=== PATIENT | female | born 2000 | race Caucasian/White ===

== ENCOUNTER 2024-09-29 09:30 | Outpatient (RCR) | payer BC, SELFPAY ==
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
--- NOTE | 2024-09-29 10:10 | BH.SGPN.GN ---
Behaviors/Verbalizations/Mental Status: [] Eye contact is good. Motor activity is appropriate. Appearance is casual. Speech is Appropriate. Mood is anxious. Affect is congruent. Thoughts are linear and logical. No evidence of psychosis. Client Response/Progress/Benefit: [] Pt responded well to session AEB actively participating throughout group. Pt was attentive throughout group activity discussing famous individuals and how they overcame failure to be successful. Pt helped group define fear of failure as well as how it can impact mental health and relationships. Participated in experiential activity and worked with group members to problem solve. Appeared to benefit from increased knowledge of what causes fear of failure and how it impacts people. Will continue IOP tx to prevent decompensation, improve distress tolerance, and challenge distortions.
--- NOTE | 2024-09-29 11:10 | BH.SGPN.GN ---
Behaviors/Verbalizations/Mental Status: []Pt alert and oriented, neatly dressed and groomed. Eye contact good. Motor activity appropriate. Speech within normal limits. Affect congruent, mood anxious. Thoughts linear, logical, no signs of hallucinations or delusions. Client Response/Progress/Benefit: [] Pt responded well to session, engaged in the experiential activity and attentive throughout group processing. Pt reported fear of failure has kept Pt from ?stepping up in my job? and seeking help for her mental health. Pt completed fear of failure worksheet and was able to identify thoughts and behaviors that reinforce personal fear of failure including unsupportive people, self-sabotaging behaviors, and not asking for help. Pt participated in small group discussion regarding strategies to overcome fear of failure. Identified wanting to work on utilizing accepting ups and downs and combatting negative thoughts. Appeared to benefit from increased knowledge of strategies to combat fear of failure and gaining self-awareness. Pt will continue IOP tx to prevent decompensation, improve daily functioning, and gain healthy coping skills. ? Narrative Note: []
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
--- NOTE | 2024-10-01 09:42 | BH.DR.ITP ---
Initial Treatment Plan Patient Information Visit Information: ADMISSION DATE: EXPECTED LOS: 4-6 weeks Problems/Symptoms Problem #1:: depression Symptom:: sadness,self harm, changes in sleep, loss of kalen Problem #2:: Generalized Anxiety Disorder Symptom:: panic attacks, worry, rumination
[2024-10-01 10:13] VITALS: BP 134/87; PULSE 69
--- NOTE | 2024-10-01 10:15 | BH.SGPN.GN ---
Behaviors/Verbalizations/Mental Status: [] Client alert and oriented, casual appearance. Eye contact good. Motor activity appropriate. Speech within normal limits. Affect congruent, mood euthymic. Thoughts linear, logical, no signs of hallucinations or delusions. Client Response/Progress/Benefit: []Client responded well to session AEB listening attentively to peers, taking notes, and engaging in discussions. Client attentive to psychoeducation about different styles of decision making. Client engaged in discussion about internal and external influences that impact decision making. Group identified internal influences that impact decision making to include self-talk, anxiety, mood, and past experiences. Group identified external influences that impact decision making to include opinions from others, peer pressure, societal or cultural norms, and finances. Client seemed to benefit from increased awareness and understanding of different decision making styles. Plan is for client to continue IOP to improve healthy coping, challenge distortions, and prevent decompensation.
--- NOTE | 2024-10-01 14:36 | BH.MDN ---
Multi-Disciplinary Note Note 45-min Individual: Time Started:: 11:10 Date: 10/01/24 Purpose of session/treatment goals addressed:: Purpose of session was to address goals 1 and 2 from MTP. Eye Contact:: Fair Motor Activity:: Appropriate Appearance:: Casual Speech:: Appropriate Mood:: Anxious and Depressed Affect:: Constricted Thoughts:: Linear, Logical and No evidence of hallucinations/delusions noted Staff Interventions:: psychoeducation on: (cognitive triangle and behavior activation), CBT techniques, rapport building, strengths perspective, goal setting (created weekly task list) and taught coping skills Client Response:: Client reported she is seeking treatment after being recommended by a friend at work. Client shared she has struggled with depression for most of my life. Client reported her parents often dismissed her feelings of depression and do not believe in mental health. Client reported Time Stopped:: 12:00
--- NOTE | 2024-10-05 09:05 | BH.SGPN.GN ---
Behaviors/Verbalizations/Mental Status: [] ?Eye contact is good. Motor activity is appropriate. Appearance is casual. Speech is Appropriate. Mood is depressed. Affect is congruent. Thoughts are linear and logical. No evidence of psychosis. Reviewed daily check in sheet and no reports of suicidal ideations or intent. Client Response/Progress/Benefit: [] ?Pt was an active participant in group discussions. Attentive. Did well to identify 2 mental health wins including managing to get here today despite a mix up with work. Additional win noted as making plans to go read at a coffee shop this afternoon so she is not isolated. Stressor noted as ongoing struggles with her mental health. Benefited from group support, encouragement, and feedback. Will continue in IOP to prevent decompensation, promote mood stability, and increase healthy coping consistency. Narrative Note: []
--- NOTE | 2024-10-05 10:10 | BH.SGPN.GN ---
Behaviors/Verbalizations/Mental Status: [] Eye contact is good. Motor activity is appropriate. Appearance is casual. Speech is Appropriate. Mood is dysthymic. Affect is congruent. Thoughts are linear and logical. No evidence of psychosis. Client Response/Progress/Benefit: [] Pt participated at times during group discussions and interactions. Attentive during psychoeducation on automatic negative thoughts (ANTS) and cognitive distortions. This group was very psychoeducation heavy. Pt did participated during interactive discussions in which peers defined and gave examples of ANTS. Participated during interactive discussion on definition of cognitive distortions and examples related to the 10 cognitive distortions presented. Client stated top three distortions she uses are magnification, personalization, and jumping to conclusions.. Benefited from increased insight and awareness of cognitive distortions and their impact on emotions and behaviors. Will continue in IOP to improve boundary setting, increase healthy coping, and prevent decompensation.
--- NOTE | 2024-10-05 15:05 | BH.MDN ---
Multi-Disciplinary Note Note 45-min Individual: Time Started:: 11:10 Date: 10/05/24 Purpose of session/treatment goals addressed:: Purpose of session was to address goals 1 and 2 from MTP. Eye Contact:: Fair Motor Activity:: Appropriate Appearance:: Casual Speech:: Appropriate Mood:: Anxious and Dysthymic Affect:: Congruent Thoughts:: Linear, Logical and No evidence of hallucinations/delusions noted Staff Interventions:: thought challenging, CBT techniques, rapport building, strengths perspective, goal setting and taught coping skills Client Response:: Client said she completed homework of engaging in behavior activation by reading and completing chores and tasks around the house. Client noted she did have some external motivation to clean because she was supposed to have a friend over to hang out. Client noted she was able to see positive impact of allowing herself time to read and was able to engage in her book. Client reported she chose to use her intermittent FMLA today by calling off work because she was struggling more with negative thought patterns and hopelessness last night. Client shared yesterday while she was at work she had negative interaction with a coworker and this led to negative thoughts spiral that people don't like her and she's tired of fighting her depression. Client said she was having thoughts of non-suicidal self-harm but instead of doing that she reached out to [facility] crisis hotline which she found to be helpful just to have somebody to talk to. Client reported most often what helps her in her negative spiral, especially when she's having non suicidal self-harm thoughts she often reaches out to friends or other supports. Client stated however she often has depressed or negative thoughts cycles in the evening when people are sleeping. Therapist reviewed the idea of having a coping box in which she can put stress balls, fidgets, and note reminders of other skills and put this box in a location that will be visible to her. Client noted she was open to trying this. Client processed how this coworker had been a previous friend of client until about two months ago in which this individual stopped talking to client completely. Client stated she's attempted to reach out to this person numerous times to at least understand what has led to this person cutting client off completely however the individual will not respond to any of client's text messages. Client stated she recognizes it would be good for her to move on from this individual instead of continuing to try to make things work because it often leads to disappointment and rejection. Client open to no longer texting this person and when is around this person at work client will only reach out when it has to do with work things. Client also agreeable to focus on making decisions based on how she feels versus basing decisions on how it will make the other person feel. Client agreed that this could be something that would be helpful for her because this is not the first negative thought spiral that has occurred connected to this person. Risks/Concerns:: Client denies suicidal ideation, plan, or intention to date. Client does struggle with non-suicidal self-harm thoughts, but last night was able to work through these thoughts by reaching out to supports. Progress Toward Goals/Plan:: Progress noted with client following through with provided homework of engaging in behavior activation. Client did not increased negative thoughts last night with thoughts of non-suicidal self-harm, but she was able to use her external resources of reaching out to friends and texting [id number] crisis hotline. Client noted these skills helped prevent her from engaging in self-harm. Plan is for client to continue IOP to improve emotion regulation, challenge negative thoughts, and prevent decompensation. Time Stopped:: 11:54
--- NOTE | 2024-10-06 09:05 | BH.SGPN.GN ---
Behaviors/Verbalizations/Mental Status: [] Eye contact is good. Motor activity is appropriate. Appearance is casual. Speech is Appropriate. Mood is depressed and anxious. Affect is congruent. Thoughts are linear and logical. No evidence of psychosis. Reviewed daily check in sheet and no reports of suicidal ideations or intent. Client Response/Progress/Benefit: [] Pt participated at times during the group discussions. Attentive. Daily symptom tracker notes 5 for depression and anxiety. Able to identify mental health wins and healthy habits. Shared with the group urges to self-harm yesterday. Elaborated on the skills she used to help avoid self-injurious behaviors. Despite feeling ?blah?, she was proud that she ? got up and got here today? Progress noted. Benefited from group support, encouragement, and feedback. Will continue in IOP to maintain safety, prevent decompensation, and increase healthy coping. Narrative Note: []
--- NOTE | 2024-10-06 10:10 | BH.SGPN.GN ---
Behaviors/Verbalizations/Mental Status: [] Eye contact is good. Motor activity is appropriate. Appearance is casual. Speech is Appropriate. Mood is dysthymic. Affect is congruent. Thoughts are linear and logical. No evidence of psychosis. Client Response/Progress/Benefit: [] Client engaged participant at times during group session as evidenced by contributions during group discussions, appearing to listen to others, and taking notes. Client engaged in discussion about barriers that keep people from having difficult confrontations. Group identified potential reasons individuals avoid difficult conversations which included; feeling uncomfortable, reaction of others, fear, and avoiding conflict. Group also identified benefits to having crucial conversations. Pt identified things they do that impact their communication shutting down and internalizing. Client seemed to benefit from increased awareness and education about importance of having difficult conversations and recognizing the impact of avoiding such conversations. Client to continue IOP to prevent decompensation, increase healthy coping, and improve functioning. Narrative Note: []
--- NOTE | 2024-10-06 11:10 | BH.SGPN.GN ---
Behaviors/Verbalizations/Mental Status: [] Eye contact is good. Motor activity is appropriate. Appearance is casual. Speech is appropriate. Mood is depressed. Affect is congruent. Thoughts are linear and logical. Client Response/Progress/Benefit: [] Pt was an active participant, engaged in activities and discussion. Pt able to identify ways they negatively contribute to crucial conversations and pt was engaged during psychoeducation of the different ways to build interpersonal effectiveness skills. Pt and peers practiced mirroring and active listening with assigned partners. Group reviewed DEAR MAN and used the handout to help map out how they would like a crucial conversation in their life to go. Pt identified a crucial conversation with support regarding lack of communication and invalidated feelings and completed worksheet adhering to DEAR MAN strategies . Pt appeared to benefit from learning and practicing interpersonal effectiveness skills. Pt will continue IOP tx to maintain safety, prevent decompensation, and increase healthy coping. Narrative Note: []
== END 2024-10-07 23:59 ==
LOC: BHIOP 09:30
PROVIDERS: PCP Family Medicine; Referring Provider Student in an Organized Health Care Education/Training Program; Visit Provider Student in an Organized Health Care Education/Training Program
DX: F32.9 Major depressive disorder, single episode, unspecified (principal); F41.1 Generalized anxiety disorder
CPT/HCPCS: S9480; 90834; 90853

== ENCOUNTER 2024-10-08 07:51 | Outpatient (RCR) | payer BC, SELFPAY ==
--- NOTE | 2024-10-13 09:05 | BH.SGPN.GN ---
Behaviors/Verbalizations/Mental Status: [] Eye contact is good. Motor activity is appropriate. Appearance is casual. Speech is Appropriate. Mood is dysthymic. Affect is congruent. Thoughts are linear and logical. No evidence of psychosis. Reviewed daily check in sheet and no reports of suicidal ideations or intent. Client Response/Progress/Benefit: [] Pt participated at times during the group discussions. Attentive. Able to identify mental health wins and healthy habits. ? I had a good day yesterday which has been unusual?. She elaborated that she had limited depression, anxiety, or self-harm urges. Her emotions felt manageable and overall had a positive day. Group encouraged her to reflect on the day to identify skills or activities that may have helped her yesterday. She is feeling ?exhausted? today and reports work-related stress feeling her employer to not supportive of her mental health. Benefited from group support, encouragement, and feedback. Will continue in IOP to maintain safety, increase healthy coping, and prevent decompensation. Narrative Note: []
--- NOTE | 2024-10-13 10:05 | BH.SGPN.GN ---
Behaviors/Verbalizations/Mental Status: [] Eye contact is good. Motor activity is appropriate. Appearance is casual. Speech is Appropriate. Mood is dysthymic, anxious. Affect is congruent. Thoughts are linear and logical. No evidence of psychosis. Client Response/Progress/Benefit: [] Pt participated in the group discussions AEB providing input and taking notes. Attentive during psychoeducation on SMART Goal Setting. Pt worked with group to identify common barriers to goal setting which included; mental health struggles, energy/motivation, limited support, change to routine, lack or resources, having unrealistic goals, and our internal expectations. Group also identified benefits of goals, which included: promotes a sense of accomplishment, it challenges oneself, can boast confidence, and can cause positive change/growth. Pt identified personal benefits to goal setting which included a sense of accomplishment/confidence boost. Benefited from increased awareness of mental health benefits of goals as well as psychoeducation on SMART goal criteria. Will continue in IOP to prevent decompensation, increase healthy coping, and improve mood stability. Narrative Note: []
--- NOTE | 2024-10-13 11:05 | BH.SGPN.GN ---
Behaviors/Verbalizations/Mental Status: [] Pt alert and oriented. Appearance is casual, hygiene is appropriate. Eye contact good. Motor activity appropriate. Speech within normal limits. Affect is anxious, depressed. Mood is constricted. Thoughts linear, logical, no signs of hallucinations or delusions. Client Response/Progress/Benefit: [] Pt was engaged during discussion and experiential activity. Completed the worksheet challenging them to develop a personal SMART goal. Pt chose a SMART goal to work on a puzzle for 15 minutes everyday for one week. Believes this goal will benefit them increase concentration and engage in something she used to enjoy. Identified obstacles such as frustration and phone as distraction. Pt able to identify several solutions to help overcome barriers. Benefited from this group by developing a short-term SMART goal related to mental health. Will continue IOP to prevent decompensation, increase consistent use of healthy coping skills, and challenge distortions.
--- NOTE | 2024-10-14 09:02 | BH.SGPN.GN ---
Behaviors/Verbalizations/Mental Status: [] Client alert and oriented, casual appearance. Eye contact good. Motor activity appropriate. Speech within normal limits. Affect congruent, mood anxious. Thoughts linear, logical, no signs of hallucinations or delusions. Reviewed client's symptom tracker, no risk for suicidal ideation, plan, or intent. Client Response/Progress/Benefit: [] Client responded well to session AEB listening to others and sharing thoughts/feelings. Per daily symptom tracker client scored a 2 out of 5 for depression and a 1 out of 5 for anxiety. Noted her mood and ability to function have been better recently. Client reported mental positive as being social earlier this week but hanging out with a cousin. Client noted additional mental positive as being able to complete various errands that she has been putting off. Client noted her current stressor is her job not supporting her with seeking IOP because they have not been as accommodating on her work schedule. Appeared to benefit from support from peers. Will continue IOP tx to improve emotional regulation, work on setting and attaining boundaries, and prevent decompensation. Narrative Note: []
--- NOTE | 2024-10-14 10:15 | BH.SGPN.GN ---
Behaviors/Verbalizations/Mental Status: []Client alert and oriented, casually dressed. Eye contact good. Motor activity appropriate. Speech within normal limits. Affect congruent, mood mostly euthymic, frustrated at times. Thoughts linear, logical, no signs of hallucinations or delusions. Client Response/Progress/Benefit: [] Pt was an active participant AEB taking notes and engaging in group activity. Connected with the topic of pitfalls and listened to group discussion on barriers that prevent from choosing a healthier path to mental wellness. Group worked together to identify examples of personal pitfalls. These examples included; shutting down, not asking for help, negative thinking patterns, avoidance, and isolation. Pt did well in the experiential activity and was able to regulate stress and frustration in healthy ways. Pt benefited from group as Pt learned to better identify potential barriers to improving mental health symptoms. Identified personal barrier of negative thinking and avoidance. Pt will continue IOP tx to prevent decompensation, gain healthy coping skills, and improve daily functioning. Narrative Note: []
--- NOTE | 2024-10-20 10:10 | BH.SGPN.GN ---
Behaviors/Verbalizations/Mental Status: []Pt alert and oriented, casually dressed and groomed. Eye contact good. Motor activity appropriate. Speech within normal limits. Affect congruent, mood dysthymic. Thoughts linear, logical, no signs of hallucinations or delusions. Client Response/Progress/Benefit: [] Pt participated during the group discussion, providing input and remaining attentive during psychoeducation. Participated in experiential activity. Pt contributed during interactive discussion on the consequences of unhealthy expression of emotions. Worked with group to identify several consequences which included hurting relationships and isolating oneself. Contributing during interactive discussion on common potholes to effectively communicating. Identified personal communication pothole as passive aggressive communication. Pt was able to relate and make connections between the experiential activity and the overall topic, managing emotions through activity by using calming skills and self-talk. Benefited from increased awareness of how stress and emotions can impact one's ability to communicate. Will continue in IOP to promote use of healthy coping skills, reduce negative thinking patterns, and improve mood stability. Narrative Note: []
--- NOTE | 2024-10-20 11:10 | BH.SGPN.GN ---
Behaviors/Verbalizations/Mental Status: [] Eye contact is good. Motor activity is appropriate. Appearance is casual. Speech is Appropriate. Mood is dysthymic. Affect is congruent. Thoughts are linear and logical. No evidence of psychosis. Client Response/Progress/Benefit: [] Client engaged in session AEB client listening attentively to peers and providing input. Attentive during psychoeducation on 4 zones of regulation. Pt able to identify feelings and behaviors for each zone. Pt identified coping skills one can use to support self in each zone. Pt reports skills she wants to practice to get out of the blue zone are: opposite action, dancing, crafting, and changing environment. Benefited from increased education on zones of regulation or stages of alertness for emotions and healthy coping skills to use for each zone. Pt will continue IOP tx to prevent decompensation, increase healthy coping, and continue working on boundary setting.
--- NOTE | 2024-10-20 13:54 | BH.MDN_ITS ---
Multi-Disciplinary Note Note 45-min Individual: Time Started:: 09:15 Date: 10/20/24 Purpose of session/treatment goals addressed:: Purpose of session was to address goals 1 and 2 from MTP. Eye Contact:: Good Motor Activity:: Appropriate Appearance:: Casual Speech:: Appropriate Mood:: Anxious and Dysthymic Affect:: Congruent Thoughts:: Linear, Logical and No evidence of hallucinations/delusions noted Staff Interventions:: thought challenging, CBT techniques, rapport building, strengths perspective, reviewed DSM-5, goal setting and other (self- care wheel) Client Response:: Client reported the past few days she has noticed an increase in depressive symptoms. Client stated over the weekend there were several unexpected stressors that she believes is contributing to recent drop in mood. Client reported again her best friend passed out during work and is in sepsis. Client stated additional stressors as her brother is going through mental health struggles and her uncle is going back into the hospital for health complications. Client reported she has found herself to be withdrawing from others which she recognizes slightly impactful to her mental health. Client stated she does struggle with focusing on what she needs when she is feeling stressed or overwhelmed and often focuses on what other people need from her. When asked about her current self-care routine and activities that she engages in client stated she does not feel like self-care is something she often does. Client responded well to psychoeducation and learning about self-care by looking at the different components of self-care. Client and therapist worked together to identify different activities that she could engage in that fall under different categories of self-care. Client connected that she could benefit from improvement in each area of self-care especially in her professional self-care. Client noted she often struggles with taking her lunch break, until recently would stay late for work, and until recently often would accept extra shifts. Client stated she would like to focus on being able to say now to more work and to take her full break when at work. Client also able to identify different self-care activities that she could engage in to meet her physical, personal, spiritual, and psychological self-care needs. Client stated focusing on improving her self-care she thinks is the most beneficial in the hearing now. Client and therapist reviewed her progress based on client's DSM-5 crosscutting measure questionnaire that she completed today for her review. Per DSM-5 clients overall mental symptoms have decreased by 26%, depression decreased by 40%, and anxiety decreased by 23%. Client stated sees progress with her ability to get herself out of her comfort zone despite feeling anxious. Client reported overall she does feel like her mood is improved compared to when she for started IOP. Client noted would like to continue to work on being able to where and strategies to manage unexpected stressors because she often struggles with this. Risks/Concerns:: Denies suicidal ideation, plan, and intention. Progress Toward Goals/Plan:: Progress noted with client reporting overall improvement with decreased anxiety and improved mood compared to when she first started IOP. Client does note a recent increase in depressive feeling with low motivation and low energy which she attributes to recent unexpected stressors from this weekend. Client open to working on improving her self-care which is something she notes is a struggle for her. Plan is for client to continue IOP to improve distress tolerance, challenge distortions, and prevent decompensation. Time Stopped:: 10:00
--- NOTE | 2024-10-27 09:05 | BH.SGPN.GN ---
Behaviors/Verbalizations/Mental Status: [] Eye contact is good. Motor activity is appropriate. Appearance is casual. Speech is Appropriate. Mood is anxious. Affect is congruent. Thoughts are linear and logical. No evidence of psychosis. Reviewed daily check in sheet and no reports of suicidal ideations or intent. Client Response/Progress/Benefit: [] Pt participated when prompted. Attentive. Daily symptom tracker notes 4/5 for depression and 3/5 for anxiety. Able to identify mental health wins and healthy habits. Spent time with support, setting boundaries, and being more assertive at work which has improved work environment. Future-oriented and hopeful as she is starting up college courses next week. While she is anxious believes this is normal due to upcoming changes. Progress noted. Benefited from group support, encouragement, and feedback. Will continue in IOP to maintain safety, prevent decompensation/re-admission, and to increase healthy coping. Narrative Note: []
--- NOTE | 2024-10-27 10:15 | BH.SGPN.GN ---
Behaviors/Verbalizations/Mental Status: []Eye contact is good. Motor activity is appropriate. Appearance is casual. Speech is Appropriate. Mood is anxious. Affect is congruent. Thoughts are linear and logical. No evidence of psychosis. Client Response/Progress/Benefit: [] Pt receptive to session AEB listening attentively to others and taking notes. Pt attentive and contributed throughout psychoeducation on the cognitive triangle and maintenance cycles. Pt engaged during group discussion reviewing the impact of daily activities and behaviors in either reinforcing unhealthy maintenance cycles and depression or assisting in reducing symptoms (?down? vs ?up? activities). Pt participated during interactive discussion in which pt identified their own common up activities (personal hygiene and getting out of the house) and down activities (isolating and not practicing self-care). Appeared to benefit from increased awareness of current behaviors and impact these have on mental health. Will continue IOP to increase distress tolerance, improve daily functioning, and reduce negative thinking patterns. Narrative Note: []
--- NOTE | 2024-10-27 11:15 | BH.SGPN.GN ---
Behaviors/Verbalizations/Mental Status: []Pt alert and oriented, casually dressed and groomed. Eye contact fair. Motor activity appropriate. Speech within normal limits. Affect congruent, mood euthymic. Thoughts linear, logical, no signs of hallucinations or delusions. Client Response/Progress/Benefit: [] Pt responded well to session, attentive and engaged in group discussions and activity. Actively engaged in continued discussion about up activities and down activities. Active participant as group discussed values and the benefits that knowing one's values can have on one's mental health. Client shared she would like to focus on strengthening her value of friendships by reaching out to one friend by Friday. Benefited from increased awareness of their up activities and how incorporating their values into behavioral activation goals can positively impact mental health. Will continue in IOP to improve consistent use of healthy coping skills, maintain boundaries, and prevent decompensation.
--- NOTE | 2024-10-29 10:10 | BH.SGPN.GN ---
Behaviors/Verbalizations/Mental Status: []Pt alert and oriented, casually dressed and groomed. Eye contact good. Motor activity appropriate. Speech within normal limits. Affect constricted, mood euthymic. Thoughts linear, logical, no signs of hallucinations or delusions. Client Response/Progress/Benefit: [] Pt responded well to session AEB sharing and listening attentively to others. Group provided examples of types of support (professional, pets, hobbies, community, spouse, emilie, etc) as well as benefits of having social support, including: validation, get perspective, and accountability. Pt also participated in group discussion regarding the barriers to accessing support and pt?s barriers included; fear of rejection, overthinking, and lack of vulnerability. Pt participated in experiential activity illustrating the impact communication, boundaries, and patience play in creating healthy support systems. Pt appeared to benefit from increased knowledge of the benefits of social support and greater self-awareness. Pt to continue IOP to reduce negative thinking patterns, improve daily functioning, and increase distress tolerance. ? Narrative Note: []
--- NOTE | 2024-10-29 11:15 | BH.SGPN.GN ---
Behaviors/Verbalizations/Mental Status: []Client alert and oriented, casually dressed and groomed. Eye contact good. Motor activity appropriate. Speech within normal limits. Affect congruent, mood dysthymic. Thoughts linear, logical, no signs of hallucinations or delusions. Client Response/Progress/Benefit: [] Pt participated throughout AEB contributing to discussion, providing examples, and taking notes. Pt provided input during discussion on the types of support our supports can provide. Pt able to identify current support system and barriers that get in the way of using supports. Pt reported after identifying what type of supports pt receives, pt gained awareness that pt could benefit from more emotional support by putting more effort into consistently reaching out to supports before reaching crisis. Pt seemed to benefit from identifying the type of support pt needs to work on improving. Pt recommended to continue IOP tx to promote increase positive self-talk, improve self-compassion, and prevent decompensation. Narrative Note: []
--- NOTE | 2024-10-29 11:24 | PCM.BH.PN ---
Intake Vital Signs 10/01/24 10:13 10/29/24 11:25 Height 1.63 m 1.63 m Weight: 102.058 kg BP 134/87 H Pulse 69 Intake Visit Reasons: f/u MDD, ALEJANDRA Allergies No Known Allergies Allergy (Verified 10/01/24 09:54) Medications ?Medication ?Instructions ?Recorded ?Confirmed ?Type aripiprazole 5 mg tablet (Abilify) 5 mg PO DAILY 10/01/24 10/01/24 History desvenlafaxine succinate 100 mg 100 mg PO DAILY 10/01/24 10/01/24 History tablet,extended release 24 hr (Pristiq) hydroxyzine HCl 50 mg tablet 100 mg PO TID PRN anxiety 10/01/24 10/01/24 History propranolol 40 mg tablet 40 mg PO BID 10/01/24 10/01/24 History spironolactone 100 mg tablet 100 mg PO DAILY 10/01/24 10/01/24 History (Aldactone) trazodone 50 mg tablet 75 mg PO QHS PRN insomnia 10/01/24 10/01/24 History bupropion HCl 300 mg 24 hr tablet, 300 mg PO DAILY #30 tabs 10/29/24 Rx extended release (Wellbutrin XL) HPI () History of Present Illness History provided by: patient Chief complaint: Follow-up MDD HPI: -Current psychiatric medications: Abilify 5 mg, Wellbutrin 150 mg XL, hydroxyzine as needed, Pristiq 100 mg daily Feeling alright. Wellbutrin has been helpful, Sleeping better, 7-8 hours a night, no nightmares, appetite getting better, -SUBJECTVE: Reports feeling better than she did know that she is on the Wellbutrin and is found that helpful, sleeping better 7 to 8 hours a night, appetite is improving, still feels there is room for improvement and would like to increase the Wellbutrin. No SI or HI reported, no AH or VH reported Patient is tolerating medications without side effects Exam Mental Status Exam- Psych () Appearance casually dressed, adequately groomed and no apparent distress Attitude cooperative and calm Activity/Motor Behavior MSE activity/motor behavior finding no adventitious movements Speech regular rate and regular volume Mood euythmic Affect full range Thought Process linear and logical Thought Content no delusions and no hallucinations Suicidal Ideation none Homicidal Ideation none Attention intact Concentration intact Sensorium/Orientation awake and alert Memory/Cognition intact Insight fair Judgement fair Assessment & Plan () Assessment & Plan (1) Major depressive disorder: Plan: Reports partial benefit with the Wellbutrin and is thus far happy with the medication, discussed keeping medications the same versus further adjustment and patient still feels there is room for improvement and is interested in further adjustment, she feels the Wellbutrin has been more helpful than the Pristiq, will trial increasing Wellbutrin to 300 mg, continue Abilify and Pristiq at current dosing (2) ALEJANDRA (generalized anxiety disorder): Plan: As above Medications: New bupropion HCl XL 300 mg PO DAILY 30 tabs 0RF Discontinued bupropion HCl XL Discontinued Reason: Ordered 150 mg PO QAM 30 tabs 2RF Visit Details Comments: Spent a total of [ ] minutes on the date of the service which included [ ]. Charges/Coding Behavior Health Behavior Health EST Pt E/M: 39724 Est Pt Level IV
--- NOTE | 2024-11-04 09:00 | BH.SGPN.GN ---
Behaviors/Verbalizations/Mental Status: [] Eye contact is good. Motor activity is appropriate. Appearance is casual. Speech is Appropriate. Mood is dysthymic. Affect is congruent. Thoughts are linear and logical. No evidence of psychosis. Reviewed daily check in sheet and no reports of suicidal ideations or intent. Client Response/Progress/Benefit: [] Pt was an active participant in group discussions. Attentive. Did well to identify 2 mental health wins including going to a concert with her cousin and spending time with her before she leaves for college. Additional win noted as the new school semester starting for her. Shared that this is also a stressor as pt is worried about balancing school and work. Plans to discuss further in individual session on creating a schedule. Responded well to group support. Benefited from group support, encouragement, and feedback. Will continue in IOP to prevent decompensation, promote mood stability, and increase confidence. Narrative Note: []
--- NOTE | 2024-11-04 10:00 | BH.SGPN.GN ---
Behaviors/Verbalizations/Mental Status: []Pt alert and oriented, neatly dressed and groomed. Eye contact good. Motor activity appropriate. Speech within normal limits. Affect congruent, mood euthymic. Thoughts linear, logical, no signs of hallucinations or delusions. Client Response/Progress/Benefit: [] Pt was an active participant in group discussion and experiential activity. Attentive during psychoeducation on resilience and provided input throughout. Participated in interactive discussion with peers on the definition of resilience and where it comes from. Group identified that resiliency can be impacted by; past experiences, upbringing, and personality traits. Able to relate experiential activity of group juggle to topics of resilience. Worked with peers in small group in which they identified factors that contribute to resilience and did well providing ideas. Benefited from increased awareness of resilience and the factors that contribute to building resilience. Will continue in IOP tx to increase distress tolerance skills, reduce negative thinking, and improve self-care balance. ? Narrative Note: []
--- NOTE | 2024-11-05 09:00 | BH.SGPN.GN ---
Behaviors/Verbalizations/Mental Status: [] Pt alert and oriented, neatly dressed and groomed. Eye contact good. Motor activity appropriate. Speech within normal limits. Affect constricted, mood euthymic. Thoughts linear, logical, no signs of hallucinations or delusions. Reviewed pt?s symptom tracker, no risk for suicidal ideation, plan, or intent 11/05/24. Client Response/Progress/Benefit: []Pt was an active participant in group discussions. Attentive. Able to identify mental health wins including ?I got to have some time with my friend and her baby and I accomplished a lot of school work.? ?Pt's stressor today is ?school work and getting back into that world.? The group offered pt suggests to manage this stressor and emotional support which pt reported was helpful. Pt is feeling ?content.? this morning. Pt receptive to feedback from peers. Benefited from group support, encouragement, and feedback. Progress noted. Will continue IOP tx to reinforce healthy coping skills, increase self-confidence, and improve daily functioning. Narrative Note: []
--- NOTE | 2024-11-05 10:10 | BH.SGPN.GN ---
Behaviors/Verbalizations/Mental Status: []Eye contact is good. Motor activity is appropriate. Appearance is casual. Speech is Appropriate. Mood is content. Affect is congruent. Thoughts are linear and logical. No evidence of psychosis. Client Response/Progress/Benefit: []Pt was an active participant in group discussion. Engaged and attentive during psychoeducation and interactive discussion on coping skills, why people use unhealthy coping skills, how to replace unhealthy coping skills, and internal vs external coping skills. Attentive as peers came up with list of unhealthy coping skills. Pt reported personally, they tend to either isolate or shut down. Group discussed the effects of maladaptive coping skills on mental health. Benefited from increased understanding of unhealthy coping skills and the need for developing healthy internal and external coping skills. Actively participated during experiential group activity and was able to related this activity to group topic. Will continue in IOP to promote healthy thinking patterns, apply healthy coping skills, and promote mood stability. Narrative Note: []
--- NOTE | 2024-11-05 11:10 | BH.SGPN.GN ---
Behaviors/Verbalizations/Mental Status: [] Pt alert and oriented, casual in appearance. Eye contact fair. Motor activity appropriate. Speech within normal limits. Affect congruent, mood anxious. Thoughts linear, logical, no signs of hallucinations or delusions. Client Response/Progress/Benefit: [] Pt did not engage in group discussions however was attentive AEB taking notes, and listening attentively to others. Group discussed the different categories of coping skills which included distraction, emotional release, grounding, self-love, and thought challenging. Pt participated in creating a coping skills ?menu? from the different categories of coping skills. Pt's coping skill menu included: Walking, journaling, guided imagery, cooking, and delay,distract, decide. Appeared to benefit from increasing repertoire of healthy coping skills. Will continue IOP to promote healthy coping, improve view of self, and prevent decompensation.
== END 2024-11-07 23:59 ==
LOC: BHIOP 07:51
PROVIDERS: PCP Family Medicine; Referring Provider Student in an Organized Health Care Education/Training Program; Visit Provider Student in an Organized Health Care Education/Training Program
DX: F32.9 Major depressive disorder, single episode, unspecified (principal); F41.1 Generalized anxiety disorder
CPT/HCPCS: S9480; 90834; 90837; 90853

== ENCOUNTER 2024-11-09 07:14 | Outpatient (RCR) | payer BC, SELFPAY ==
--- NOTE | 2024-11-10 09:05 | BH.SGPN.GN ---
Behaviors/Verbalizations/Mental Status: [] Eye contact is good. Motor activity is appropriate. Appearance is casual. Speech is Appropriate. Mood is euthymic. Affect is full. Thoughts are linear and logical. No evidence of psychosis. Reviewed daily check in sheet and no reports of suicidal ideations or intent. Client Response/Progress/Benefit: [] Pt participated at times. Attentive. Daily symptom tracker notes 03/14 for depression/anxiety. Emotion for today is ? content?. Shared with the group that she completed her first week in college while working full-time. Proud of herself. Continues to work on mental health with conscious effort to decrease isolation through social events with family. Progress noted. Benefited from group support, encouragement, and feedback. Will continue in IOP to prevent decompensation/re-admission to psych unit and increase healthy coping. Narrative Note: []
--- NOTE | 2024-11-10 10:10 | BH.SGPN.GN ---
Behaviors/Verbalizations/Mental Status: [] Client alert and oriented, casually dressed and groomed. Eye contact good. Motor activity appropriate. Speech within normal limits. Affect congruent, moodcontent. Thoughts linear, logical, no signs of hallucinations or delusions. Client Response/Progress/Benefit: [] Client responded well to session AEB contributing to discussion, taking notes, and listening attentively to others. Group discussed the benefits of managed anger and anger as a secondary emotion. Client participated in anger iceberg discussion. Group reported outward personal signs of anger as lashing out verbally, physical fights, destruction of property, self-harm, and self-sabotage. Group Identified underlying emotions that contribute to anger including being dismissed, rejection, assumptions, being lied too, and micromanaging. Appeared to benefit from increased knowledge of the underlying emotions that impact anger and increased self-awareness of the internal and external consequences of anger. Client will continue IOP program to stabilize mood, reduce maladaptive coping, and prevent decompensation. Narrative Note: []
--- NOTE | 2024-11-10 11:10 | BH.SGPN.GN ---
Behaviors/Verbalizations/Mental Status: [] client alert and oriented, casually dressed and groomed. Eye contact good. Motor activity appropriate. Speech within normal limits. Affect congruent, mood euthymic. Thoughts linear, logical, no signs of hallucinations or delusions. Client Response/Progress/Benefit: [] Client was an engaged participant throughout group AEB client providing input throughout discussion. Client contributed to the continued discussion of how people express anger as well as the underlying emotions of anger. Client participated in group activity that highlighted strategies to cope with anger. Group brainstormed healthy coping skills to help prevent anger and cope with it in the moment which included: mindfulness, deep breathing, journaling, going outside, and music. Client stated would like to try the skill of changing her perspective as a strategy to manage anger. Client appeared to benefit from brainstorming with the group potential strategies to manage anger in healthy ways. Recommended continued IOP to promote healthy coping, challenge distortions, and prevent decompensation.
--- NOTE | 2024-11-10 13:23 | BH.MDN_ITS ---
Multi-Disciplinary Note Note 45-min Individual: Time Started:: 08:05 Date: 11/10/24 Purpose of session/treatment goals addressed:: Purpose of session was to address goals 1 and 2 from MTP. Eye Contact:: Good Motor Activity:: Appropriate Appearance:: Casual Speech:: Appropriate Mood:: Euthymic Affect:: Full Thoughts:: Linear, Logical and No evidence of hallucinations/delusions noted Staff Interventions:: thought challenging, CBT techniques, discharge planning, strengths perspective and goal setting Client Response:: Client reported the past week has overall been going better. 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 Client states she just completed her first week and thought it went overall pretty well after breaking each test down throughout the week. Client stated she does not feel as overwhelmed or have as much self-doubt as she did compared to last week. Client stated overall her mood has been improved and has been helpful to remind herself that she is allowed to have bad moments. Client stated she currently would identify her depression at a 3 out of 10 with 10 being severe. Client stated she still has moments and that she feels down but does feel like she is able to utilize healthy coping skills to recover from those moments. Client stated for her anxiety she rates it a 4 out of 10 with 10 being severe. Client stated she does still have times in which she experiences intense moments of anxiety but notes that her anxiety is no longer debilitating. Client identified work specifically her coworkers to be a significant source of anxiety for her. Client worked with therapist to discuss different strategies that she could implement in the work environment to help her manage her anxiety more efficiently. Client reported overall she feels like she is more stable, better at managing her mental symptoms, and recovering from moments of struggle. Client stated she does feel ready to discharge from [facility] next week. Client agreeable for homework to start working on identifying what skills and strategies will be most helpful in maintaining a prior she has made since being in [facility]. Risks/Concerns:: Denies suicidal ideation, plan, intention. Future oriented. Progress Toward Goals/Plan:: Client progress noted with client reporting improved mood, ability to bounce back from moments of depression, and reduction in intensity and frequency of anxiety. client continues to report moments in which she feels depressed, but stated she is using skills to help her bounce back from those moods. Client stated previously she was just used to staying in the depression, but now has skills that can help her move forward from depressed moods. Client reported continues to experience anxiety, but has noted the anxiety is no longer debilitating. Plan is for client to discharge from IOP next week, she will continue IOP to promote use of healthy coping, challenge distortions, and prevent decompensation. Time Stopped:: 08:45
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
--- NOTE | 2024-11-17 10:10 | BH.SGPN.GN ---
Behaviors/Verbalizations/Mental Status: []Pt alert and oriented, casually dressed and groomed. Eye contact good. Motor activity appropriate. Speech within normal limits. Affect congruent, mood euthymic. Thoughts linear, logical, no signs of hallucinations or delusions. Client Response/Progress/Benefit: []Pt was an active participant in group discussion and activity. Attentive during psychoeducation. Along with peers, pt was able to identify barriers to taking action in their life. Identified several symptoms and stressors that pt feels are holding them back from progress. Pt able to identify how these things have negatively impacted progress. Benefited from increased self-awareness of obstacles. Pt will continue IOP to challenge distortions, improve healthy coping skills, and prevent decompensation.
--- NOTE | 2024-11-17 11:10 | BH.SGPN.GN ---
Behaviors/Verbalizations/Mental Status: []Pt alert and oriented, neatly dressed and groomed. Eye contact good. Motor activity appropriate. Speech within normal limits. Affect congruent, mood anxious. Thoughts linear, logical, no signs of hallucinations or delusions. Client Response/Progress/Benefit: [] Pt responded well to session, taking notes and participating in worksheet discussion. Pt connected with the discussion on action steps, and this helped pt learn how to set goals differently. Pt set a SMART goal that pt will ?text my friend Alisha and express my concerns about work recently.? Pt stated she can benefit from practicing self-compassion and bringing it up during her therapy sessions to hold herself accountable. ?Appeared to benefit from identifying a small goal to benefit mental health. Pt is to continue IOP tx to promote use of healthy coping skills, improve daily functioning, and increase self-confidence. Narrative Note: []
--- NOTE | 2024-11-18 09:05 | BH.SGPN.GN ---
Behaviors/Verbalizations/Mental Status: [] Pt alert and oriented, casually dressed and groomed. Eye contact good. Motor activity appropriate. Speech within normal limits. Affect congruent, mood calm and content. Thoughts linear, logical, no signs of hallucinations or delusions. Reviewed pt?s symptom tracker, no reported Si, plan, or intention. Client Response/Progress/Benefit: []Pt was an active participant in group discussions. Attentive. Pt stated that her mental health positive as taking time yesterday to do things she enjoys instead of only fucusing on tasks and chores. Pt stated it was helpful to engage in more self-care as she is trying to balance work and returning back to college to advance her degree. Pt reported her stressor as balancing full-time work and the demands of going back to school. Pt seemed to benefit from support from peers. Will continue IOP services to el so anxious and angry. Pt seemed to benefit from support from peers. Pt able to reflect on the progress she has made since starting IOP. Pt will discharge from IOP today.
--- NOTE | 2024-11-18 11:10 | BH.SGPN.GN ---
Behaviors/Verbalizations/Mental Status: [] Eye contact is good. Motor activity is appropriate. Appearance is casual. Speech is Appropriate. Mood is anxious. Affect is congruent. Thoughts are linear and logical. No evidence of psychosis. Client Response/Progress/Benefit: [] Pt was an engaged participant in group discussion and activity. Worked with group to identify strategies to help overcome barriers and obstacles to desired reality. Group developed strategies for the common barriers. Identified personal barriers to desired reality which included labeling, self-doubt, and fear of failure. Was able to identify a skill to implement immediately to address FOF.. Pt seemed to benefit from increased repertoire of healthy coping skills/strategies to overcome common barriers to moving forward. Will continue in IOP to prevent decompensation, increase healthy coping,and improve functioning. Narrative Note: []
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
== END 2024-11-18 12:29 | disposition home or self-care (01) ==
LOC: BHIOP 07:14
PROVIDERS: PCP Family Medicine; Referring Provider Student in an Organized Health Care Education/Training Program; Visit Provider Student in an Organized Health Care Education/Training Program
DX: F33.2 Major depressive disorder, recurrent severe without psychotic features (principal); F41.1 Generalized anxiety disorder
CPT/HCPCS: S9480; 90832; 90834; 90853